=== PATIENT | male | born 1980 | race Caucasian/White ===

== ENCOUNTER 2023-02-01 05:32 | Day surgery (SDC) | payer BC ==
[2023-01-25 15:59] LABS: BASOPHILS # (AUTO) 0.1 X10'3 (0-0.2); BASOPHILS % (AUTO) 0.9 % (0-1); EOSINOPHILS # (AUTO) 0.1 X10'3 (0-0.9); EOSINOPHILS % (AUTO) 1.7 % (0-6); LYMPHOCYTES # (AUTO) 2.2 X10'3 (1.1-4.8); LYMPHOCYTES % (AUTO) 32.9 % (21-51); MEAN CORPUSCULAR HEMOGLOBIN 30.9 PG (27.0-31.0); MEAN CORPUSCULAR HGB CONC 34.4 g/dL (33.0-36.5); MEAN PLATELET VOLUME 8.7 FL (7.4-10.4); MONOCYTES # (AUTO) 0.5 X10'3 (0-0.9); MONOCYTES % (AUTO) 8.1 % (2-12); NEUTROPHILS # (AUTO) 3.7 X10'3 (1.8-7.7); NEUTROPHILS % (AUTO) 56.4 % (42-75); PRE OP HEMATOCRIT 44.1 % (42.0-52.0); PRE OP HEMOGLOBIN 15.2 g/dL (14.0-17.9); PRE OP PLATELET COUNT 270 X10'3 (140-440); RED BLOOD COUNT 4.91 X10'6 (4.70-6.10)
[2023-01-25 16:10] LABS: ALBUMIN/GLOBULIN RATIO 1.2 (1.1-1.5); ALKALINE PHOSPHATASE 67 IU/L (46-116); BLOOD UREA NITROGEN 21 MG/DL (7-18); BUN/CREATININE RATIO 23.6 (10.0-20.0); CALCIUM 9.1 MG/DL (8.5-10.1); CHLORIDE 102 MMOL/L (99-107); CREATININE 0.89 MG/DL (0.60-1.10); PRE OP ALT 12 U/L (30-65); PRE OP ANION GAP 7 (8-16); PRE OP BILIRUB, TOTAL 0.6 MG/DL (0.0-1.0); PRE OP POTASSIUM 3.6 MMOL/L (3.4-5.1); PRE OP SODIUM 139 MMOL/L (135-145); TOTAL CARBON DIOXIDE 30.4 MMOL/L (24-32); TOTAL PROTEIN 7.3 G/DL (6.4-8.2); eGFR > 90 ML/MIN
[2023-01-25 16:12] LABS: PRE OP GLUCOSE 92 MG/DL (70-104)
[2023-01-25 16:25] LABS: PRE OP AST 11 U/L (10-37)
[2023-02-01] VITALS (10 sets, daily range): BP systolic 111–136; BP diastolic 65–94; PULSE 57–75; RESP 10–16; TEMP 97.9; O2SAT 96–100
[~2023-02-01] VITALS: Ht 182.9 cm; Wt 90.9 kg
[~2023-02-01 05:32] MED LIST: LEVO100T78 PO; cefazolin 2gm/D5W 100mL 100 ML IV ONE; famotidine 20mg tablet PO ONE; ringers solution, lacted 1,000 ML IV SCH
[2023-02-01] MEDS ORDERED: LIDOcaine 1% (10mg/ml)w/preservative inj. 20ml MDV ONE ×2 (06:44→07:13)
[2023-02-01] MEDS ORDERED: BUPIVAcaine/PF 2.5 mg/ml (0.25%) 30ml vial ONE (06:44)
[2023-02-01] MEDS ORDERED: LIDOcaine 1% 30ml preserv. free vial IJ ONE (07:00)
[2023-02-01] MEDS ORDERED: BUPIVAcaine/PF 2.5 mg/ml (0.25%) 30ml vial IJ ONE (07:00)
[2023-02-01] MEDS ORDERED: ringers solution, lacted 1,000 ML IV SCH (07:15)
[2023-02-01] MEDS ORDERED: hydrALAZINE 20mg/ml inj. IV PRN (07:15)
[2023-02-01] MEDS ORDERED: morphine 4 MG/ML inj SYRINge IV PRN (07:15)
[2023-02-01] MEDS ORDERED: fentaNYL/PF 50MCG/1 ML 2ML syringe IV PRN ×2 (07:15)
[2023-02-01] MEDS ORDERED: ondansetron/PF 4mg/2ml inj IV PRN (07:15)
[2023-02-01] MEDS ORDERED: morphine 2 MG/ML inj. syringe IV PRN (07:15)
[2023-02-01] MEDS ORDERED: labetalol 20mg/4ml (5mg/ml) syringe IV PRN (07:15)
[2023-02-01] MEDS ORDERED: sevoflurane 250ml liquid IH ONE (07:25)
[2023-02-01] MEDS ORDERED: rocuronium 10mg/ml inj IV ONE ×2 (07:25→07:29)
[2023-02-01] MEDS ORDERED: neostigmine methylsulfate 1 MG/ML 10ml vial ONE (07:28)
[2023-02-01] MEDS ORDERED: MIDAZolam 1 MG/ML 5ML VIAL ONE (07:28)
[2023-02-01] MEDS ORDERED: fentaNYL/PF 50MCG/1 ML 2ML syringe ONE (07:28)
[2023-02-01] MEDS ORDERED: propofol inj 20 ML IV ONE (07:28)
[2023-02-01] MEDS ORDERED: glycopyrrolate 0.2mg/ml inj ONE (07:29)
[2023-02-01] MEDS ORDERED: ondansetron/PF 4mg/2ml inj ONE (07:29)
[2023-02-01] MEDS ORDERED: dexamethasone sod phosphate 4mg/ml inj. ONE (07:29)
--- NOTE | 2023-02-01 08:57 | NUR ---
Received from OR via [facility] TO [facility] #[id number], accompanied by Anesthesiologist JOSE and report given by Anesthesiolgist. VSS, [id number] ON 6L MASK. LR RUNNING AT 100MLS AND ABD DRESSING X 3 CDI. PATIENT COMPLAINTS OF TOLERABLE PAIN 3/10. WIK CONTINUE TO MONITOR.
[2023-02-01] MEDS ORDERED: HYDROcodone/acetaminophen 5mg/325mg tablet PO PRN (09:15)
--- NOTE | 2023-02-01 10:27 | NUR ---
I HAVE REVIEWED D/C INSTRUCTIONS WITH PATIENT AND HE HAS VERBALIZED UNDERSTANDING OF INSTRUCTIONS. PATIENT WAS ABLE AMBULATE SAFELY ON HIS WAY TO VOID, BLADDER SCANNED POST VOID WITH LESS THAN 148ML LEFT IN BLADDER. ABD BANDAIDS X 3 CDI. PATIENT C/O OF TOLERABLE PAIN 3/10 TO ABD AND DOES NOT WANT ANY PAIN MEDICATION. PATIENT D/C HOME WITH ALL BELONGINGS AND FAMILY GAVE TRANSPORT. PATIENT WAS TRANSFERRED TO VEHICLE WITHOUT INCIDENT.
[2023-02-01] MEDS ORDERED: ketorolac trometh. 30mg/ml inj. IV ONE (14:00)
== END 2023-02-01 10:27 | disposition home or self-care (01) ==
LOC: PAS 05:32
PROVIDERS: ATTEND Surgery
DX: K40.20 Bilateral inguinal hernia, without obstruction or gangrene, not specified as recurrent (principal); E03.9 Hypothyroidism, unspecified; E06.3 Autoimmune thyroiditis; Z87.891 Personal history of nicotine dependence; Z98.890 Other specified postprocedural states; Z72.89 Other problems related to lifestyle; Z87.442 Personal history of urinary calculi; Z79.899 Other long term (current) drug therapy
CPT/HCPCS: 36415; 49650; 80053; 82948; 85025; 93005; C1781; J0690; J1100; J2250; J2405; J2704; J2710; J3010; J3490; J7030; J7120; S2900; Z7506; Z7508; Z7512; A4215; A4618